=== PATIENT | female | born 1960 | race African-American/Black ===

== ENCOUNTER 2016-12-18 20:18 | Inpatient (IN) | payer MEDICARE, MEDICAID ==
[~2016-12-18] VITALS: Ht 165.1 cm; Wt 89.4 kg
[~2016-12-18 20:18] MED LIST: CARB200T PO; LEVE1000 PO; TOPI50TA PO
[2016-12-18] MEDS ORDERED: SODIUM CHLORIDE 0.9% 1,000 ML IV ONE (20:35)
[2016-12-18] MEDS ORDERED: LEVETIRACETAM 500MG PREMIX 100 ML IV ONE (20:45)
[2016-12-18 21:36] LABS: BASOPHILS % 1.1 % (0.0-2.0); EOSINOPHILS % 0.5 % (0.0-5.0); HEMATOCRIT. 33.8 % (36.0-48.0); HEMOGLOBIN. 11.4 g/dL (12.0-16.0); LYMPHOCYTES % 31.8 % (20.0-50.0); MEAN CORPUSCULAR HEMOGLOBIN 31.4 pg (28.0-32.0); MEAN CORPUSCULAR VOLUME 93.5 fL (81.0-99.0); MONOCYTES % 10.5 % (2.0-8.0); NEUTROPHILS % 56.1 % (40.0-76.0); PLATELET 178 x1000/uL (130-400); RED BLOOD CELL COUNT 3.62 mill/uL (4.2-5.4); RED CELL DISTRIBUTION WIDTH 12.5 % (11.6-14.6)
[2016-12-18 21:38] LABS: PROTHROMBIN TIME 10.9 sec
[2016-12-18 21:42] LABS: AMMONIA 32 uMol/L (<32)
[2016-12-18 21:43] LABS: CARBON DIOXIDE 28 mEq/L (21-32); CHLORIDE 113 mEq/L (98-107); ETHANOL BLOOD < 10 mg/dL
[2016-12-18 21:47] LABS: CREATINE KINASE 137 IU/L (26-192); TROPONIN I < 0.02 ng/mL (0.00-0.04)
[2016-12-18 21:49] LABS: CARBAMAZEPINE 10.4 ug/mL (4-12)
[2016-12-18 21:51] LABS: PHENOBARBITAL < 2.1 ug/mL (15.0-40.0)
[2016-12-18 22:13] LABS: CLARITY URINE CLEAR (CLEAR); COLOR URINE YELLOW (YELLOW); GLUCOSE URINE NEGATIVE (NEGATIVE); KETONES URINE NEGATIVE (NEGATIVE); LEUKOCYTE ESTERASE URINE NEGATIVE (NEGATIVE); NITRITE URINE NEGATIVE (NEGATIVE); OCCULT BLOOD URINE NEGATIVE (NEGATIVE); PH URINE 7.5 (4.5-8.0); PROTEIN URINE NEGATIVE (NEGATIVE); SPECIFIC GRAVITY URINE 1.021 (1.005-1.030)
[2016-12-19] MEDS ORDERED: DOCUSATE SODIUM 100MG CAPSULE PO PRN
[2016-12-19] MEDS ORDERED: DIPHENHYDRAMINE 50MG/ML VIAL IV PRN
[2016-12-19] MEDS ORDERED: CLONIDINE 0.1MG TABLET PO PRN
[2016-12-19] MEDS ORDERED: MAGNESIUM/ALUMINUM HYDROXIDE/SIMETHICONE 30ML UDC PO PRN
[2016-12-19] MEDS ORDERED: ONDANSETRON HCL 4MG/2ML VIAL IV PRN
[2016-12-19] MEDS ORDERED: ACETAMINOPHEN 325MG TABLET PO PRN
[2016-12-19] MEDS ORDERED: NA PHOS,M-B/NA PHOS,DI-BA ENEMA 118ML PR PRN
[2016-12-19] MEDS ORDERED: GUAIFENESIN 200MG/10ML SUGAR FREE UDC PO PRN
[2016-12-19] MEDS ORDERED: HYDROMORPHONE HCL/PF 2MG/ML CPJ IV PRN
[2016-12-19] MEDS ORDERED: IPRATROPIUM/ALBUTEROL 0.5-3(2.5)MG/3ML NEB INH PRN
[2016-12-19] MEDS ORDERED: LORAZEPAM 2MG/ML CPJ IV PRN
[2016-12-19] MEDS ORDERED: KCL 20MEQ/100ML PREMIX 100 ML IV ONE (00:15)
[2016-12-19 04:00] VITALS: BP 131/83
[2016-12-19 04:14] VITALS: BP 131/83
[2016-12-19] MEDS: HYDROCODONE/ACETAMINOPHEN 5/325MG TABLET PO PRN ×2 (05:12→23:26)
[2016-12-19] MEDS: SODIUM CHLORIDE 0.45% 1,000 ML IV SCH (05:49)
[2016-12-19 08:00] VITALS: BP 112/71
[2016-12-19] MEDS: ENOXAPARIN 40MG/0.4ML SYR SUBCUT SCH (08:29)
[2016-12-19] MEDS: CARBAMAZEPINE 200MG TABLET PO SCH ×2 (10:45→21:43)
[2016-12-19] MEDS: TOPIRAMATE 25MG TABLET PO SCH ×2 (10:46→17:10)
[2016-12-19 12:00] VITALS: BP 105/61
[2016-12-19 13:46] LABS: EOSINOPHILS % 0.6 % (0.0-5.0); HEMATOCRIT. 32.2 % (36.0-48.0); HEMOGLOBIN. 10.9 g/dL (12.0-16.0); LYMPHOCYTES % 43.1 % (20.0-50.0); MEAN CORPUSCULAR HEMOGLOBIN 31.5 pg (28.0-32.0); MEAN CORPUSCULAR VOLUME 92.9 fL (81.0-99.0); MEAN PLATELET VOLUME 9.7 fl (7.4-10.4); MONOCYTES % 10.7 % (2.0-8.0); NEUTROPHILS % 44.6 % (40.0-76.0); PLATELET 170 x1000/uL (130-400); RED BLOOD CELL COUNT 3.46 mill/uL (4.2-5.4); RED CELL DISTRIBUTION WIDTH 12.5 % (11.6-14.6)
[2016-12-19] MEDS: LEVETIRACETAM 500MG TABLET PO SCH ×2 (14:05→21:43)
[2016-12-19 14:41] LABS: CARBON DIOXIDE 25 mEq/L (21-32); CHLORIDE 112 mEq/L (98-107); HDL CHOLESTEROL 55 mg/dL (40-59); LDL CHOLESTEROL 102 mg/dL (5-100); T4 FREE 0.57 ng/dL (0.76-1.46); TROPONIN I < 0.02 ng/mL (0.00-0.04)
[2016-12-19 15:28] LABS: *AMPHETAMINES SCREEN URINE NEGATIVE (NEGATIVE); *BARBITURATES SCREEN URINE NEGATIVE (NEGATIVE); *BENZODIAZEPINES SCREEN URINE NEGATIVE (NEGATIVE); *COCAINE SCREEN URINE NEGATIVE (NEGATIVE); CANNABINOID URINE SCREEN NEGATIVE (NEGATIVE); METHADONE URINE SCREEN NEGATIVE (NEGATIVE); OPIATES URINE SCREEN NEGATIVE (NEGATIVE); PHENCYCLIDINE URINE SCREEN NEGATIVE (NEGATIVE)
[2016-12-19 16:00] VITALS: BP 116/78
[2016-12-19] MEDS: DIVALPROEX SODIUM 250MG DR TABLET PO SCH ×2 (17:14→21:43)
[2016-12-19 20:00] VITALS: BP 139/85
[2016-12-19 21:19] LABS: CREATINE KINASE 110 IU/L (26-192); CREATINE KINASE MB FRACTION 1.3 ng/mL (0.5-3.6); TROPONIN I < 0.02 ng/mL (0.00-0.04)
[2016-12-20 00:47] VITALS: BP 129/82
[2016-12-20] MEDS: SODIUM CHLORIDE 0.45% 1,000 ML IV SCH ×2 (00:52→21:15)
[2016-12-20 04:08] VITALS: BP 104/59
[2016-12-20] MEDS: DIVALPROEX SODIUM 250MG DR TABLET PO SCH ×3 (05:18→22:00)
[2016-12-20] MEDS: LEVETIRACETAM 500MG TABLET PO SCH ×3 (05:18→21:17)
[2016-12-20 06:43] LABS: CREATINE KINASE MB FRACTION 1.7 ng/mL (0.5-3.6)
[2016-12-20 08:00] VITALS: BP 143/90
[2016-12-20] MEDS: TOPIRAMATE 25MG TABLET PO SCH ×2 (08:39→17:29)
[2016-12-20] MEDS: CARBAMAZEPINE 200MG TABLET PO SCH ×2 (08:39→21:15)
[2016-12-20] MEDS: ENOXAPARIN 40MG/0.4ML SYR SUBCUT SCH (08:40)
[2016-12-20 14:03] LABS: CREATINE KINASE MB FRACTION 1.7 ng/mL (0.5-3.6)
[2016-12-20 16:00] VITALS: BP 115/80
[2016-12-21] VITALS: BP 104/66
[2016-12-21 04:00] VITALS: BP 110/64
[2016-12-21] MEDS: LEVETIRACETAM 500MG TABLET PO SCH (05:14)
[2016-12-21] MEDS: DIVALPROEX SODIUM 250MG DR TABLET PO SCH ×2 (05:15→06:23)
[2016-12-21 06:05] LABS: BASOPHILS % 1.3 % (0.0-2.0); EOSINOPHILS % 1.1 % (0.0-5.0); HEMATOCRIT. 33.4 % (36.0-48.0); HEMOGLOBIN. 11.2 g/dL (12.0-16.0); LYMPHOCYTES % 38.9 % (20.0-50.0); MEAN CORPUSCULAR HEMOGLOBIN 31.3 pg (28.0-32.0); MEAN CORPUSCULAR VOLUME 93.1 fL (81.0-99.0); MONOCYTES % 10.9 % (2.0-8.0); NEUTROPHILS % 47.8 % (40.0-76.0); PLATELET 175 x1000/uL (130-400); RED BLOOD CELL COUNT 3.58 mill/uL (4.2-5.4); RED CELL DISTRIBUTION WIDTH 12.5 % (11.6-14.6)
[2016-12-21 06:45] LABS: CARBON DIOXIDE 23 mEq/L (21-32); CHLORIDE 112 mEq/L (98-107)
[2016-12-21 08:00] VITALS: BP 109/56
[2016-12-21] MEDS: CARBAMAZEPINE 200MG TABLET PO SCH (09:30)
[2016-12-21] MEDS: TOPIRAMATE 25MG TABLET PO SCH (09:30)
[2016-12-21] MEDS: ENOXAPARIN 40MG/0.4ML SYR SUBCUT SCH (09:30)
[2016-12-21 09:43] VITALS: BP 109/66
[2016-12-21 12:00] VITALS: BP 102/62
== END 2016-12-21 13:40 | disposition home or self-care (01) | DRG 101 ==
LOC: ER 21:00 → 5WST 23:24 → EDBEDREQ 23:28
PROVIDERS: ADMIT Internal Medicine; ATTEND Internal Medicine
DX: G40.419 Other generalized epilepsy and epileptic syndromes, intractable, without status epilepticus (principal); D64.9 Anemia, unspecified; E86.0 Dehydration; I10 Essential (primary) hypertension; J44.9 Chronic obstructive pulmonary disease, unspecified; Z68.33 Body mass index [BMI] 33.0-33.9, adult; Z79.899 Other long term (current) drug therapy; Z88.1 Allergy status to other antibiotic agents
CPT/HCPCS: 36415; 70450; 71010; 80048; 80053; 80061; 80156; 80165; 80184; 80185; 80305; 81003; 82140; 82550; 82553; 83036; 83880; 84439; 84443; 84484; 85025; 85379; 85610; 93005; 93306; 96361; 96365; 99285; G0482; J1650; J1953; J3480; J7030